=== PATIENT | female | born 1985 | race Caucasian/White ===

== ENCOUNTER 2021-07-07 00:14 | Emergency (ER) | payer SELFPAY ==
[~2021-07-07] VITALS: Ht 170.2 cm; Wt 114.1 kg
[2021-07-07] MEDS ORDERED: SODIUM CHLORIDE 0.9% 1,000 ML IV ONE (01:45)
[2021-07-07 02:37] LABS: BASOPHILS % 0.8 % (0.0-2.0); EOSINOPHILS % 1.2 % (0.0-5.0); HEMOGLOBIN. 13.4 g/dL (12.0-16.0); LYMPHOCYTES % 34.2 % (20.0-50.0); MEAN CORPUSCULAR HEMOGLOBIN 28.5 pg (28.0-32.0); MEAN CORPUSCULAR VOLUME 84.7 fL (81.0-99.0); MEAN PLATELET VOLUME 9.7 fl (7.4-10.4); MONOCYTES % 6.2 % (2.0-8.0); NEUTROPHILS % 57.6 % (40.0-76.0); PLATELET 211 x1000/uL (130-400); RED BLOOD CELL COUNT 4.72 mill/uL (4.2-5.4); RED CELL DISTRIBUTION WIDTH 13.6 % (11.6-14.6)
[2021-07-07 02:46] LABS: CHLORIDE 115 mEq/L (98-107)
[2021-07-07 02:49] LABS: HCG SCREEN NEGATIVE
[2021-07-07 05:32] VITALS: BP 105/79
== END 2021-07-07 06:22 | disposition home or self-care (01) ==
LOC: ER 00:14
DX: R05.9 Cough, unspecified (principal); R11.10 Vomiting, unspecified; I10 Essential (primary) hypertension; F17.290 Nicotine dependence, other tobacco product, uncomplicated; M79.7 Fibromyalgia; Z98.890 Other specified postprocedural states; Z88.2 Allergy status to sulfonamides
CPT/HCPCS: 36415; 71045; 80053; 81025; 83605; 84703; 85025; 93005; 96360; 99285; 99406; J7030